=== PATIENT | female | born 1980 | race Caucasian/White ===

== ENCOUNTER → 2024-02-06 | Outpatient (CLI) | payer MEDICAID, SELFPAY ==
--- NOTE | 2024-02-06 08:00 | XR_ITS ---
Examination: Breast ultrasound, unilateral, right complete Date and time of exam: February 06, 2024 0844 hours INDICATIONS: Mammogram 11/15/2023 5 mm nodule separate from the breast biopsy marker in the inner right breast on the CC view, family history breast cancer, right breast sonogram December 07, 2021 BI-RADS 4 suspicious nodule 4:00 right breast 10 x 7 x 10 mm Technique: Real-time calderon scale ultrasonographic imaging performed right breast including all 4 quadrants as well as nipple retroareolar and axillary region. Findings: 4:00 oval mass circumscribed 12 x 3 x 11 mm 4:00 cyst 6 x 2 x 5 mm IMPRESSION: BI-RADS Category 3: Probably benign findings Recommend 1 additional 6 month right breast sonogram follow-up to document stability of 4:00 nodule right breast
--- NOTE | 2024-02-06 08:45 | XR_ITS ---
Examination: Diagnostic digital mammography, unilateral, right Computer aided detection 3-D breast Tomosynthesis, unilateral Date and time of exam: February 06, 2024 0838 hours INDICATIONS: Mammogram 11/15/2023 5 mm nodule inner right breast breast biopsy marker Technique: Nonmagnified MLO, CC views of the right breast have been obtained, reconstructed from 3-D Tomosynthesis images. R2 computer aided detection program utilized for evaluation of suspicious masses and/or abnormal calcifications. 3-D Tomosynthesis images obtained. Findings: The breast is heterogeneously dense, which may obscure small masses Focal asymmetry remains inner right breast Impression: BI-RADS category 3: Probably benign findings One additional 6 month right mammogram follow-up is needed
== END | disposition home or self-care (01) ==
LOC: CDIM 08:04
PROVIDERS: Referring Provider Physician Assistant; Visit Provider Physician Assistant
DX: R92.331 Mammographic heterogeneous density, right breast (principal); N64.89 Other specified disorders of breast; N63.14 Unspecified lump in the right breast, lower inner quadrant
CPT/HCPCS: 76641; 77061; 77065; G0279

== ENCOUNTER → 2024-12-12 | Outpatient (CLI) | payer MEDICAID, SELFPAY ==
--- NOTE | 2024-12-12 09:30 | XR_ITS ---
Examination: Breast ultrasound, unilateral, right complete Date and time of exam: December 12, 2024, 0948 hours INDICATIONS: Right breast sonogram February 06, 2024 4:00 nodule 12 x 11 mm, mammogram February 06, 2020 for focal asymmetry in the right breast Technique: Real-time calderon scale ultrasonographic imaging performed right breast including all 4 quadrants as well as nipple retroareolar and axillary region. Findings: 1:00 possible nodule 13 x 9 mm 4:00 nodule lobular margins 10 x 11 mm 9:00 circumscribed nodule 13 x 13 mm IMPRESSION: BI-RADS Category 3: Probably benign findings Continued right breast sonogram follow-up 3 to 6 months strongly recommended
--- NOTE | 2024-12-12 10:00 | XR_ITS ---
Examination: Diagnostic digital mammography, unilateral, right Computer aided detection 3-D breast Tomosynthesis, unilateral Date and time of exam: December 12, 2024, 1015 hours INDICATIONS: Mammogram February 06, 2020 for a focal asymmetry inner right breast Technique: Nonmagnified MLO, CC views of the right breast have been obtained, reconstructed from 3-D Tomosynthesis images. R2 computer aided detection program utilized for evaluation of suspicious masses and/or abnormal calcifications. 3-D Tomosynthesis images obtained. Findings: The breast is heterogeneously dense, which may obscure small masses 4:00 nodule lobular margins is depicted corresponding to nodule on the right breast sonogram today Impression: BI-RADS category 3: Probably benign findings Recommend 6-month bilateral mammography follow-up
== END | disposition home or self-care (01) ==
LOC: CDIM 09:24
PROVIDERS: PCP Physician Assistant; Referring Provider Physician Assistant; Visit Provider Physician Assistant
DX: R92.331 Mammographic heterogeneous density, right breast (principal)
CPT/HCPCS: 76641; 77061; 77065; G0279